=== PATIENT | female | born 1955 | race Caucasian/White ===

== ENCOUNTER 2019-10-02 07:47 | Inpatient (IN) ==
[2019-10-02] MEDS ORDERED: Dexamethasone 4 MG/ML VIAL ONE (08:08)
[2019-10-02] MEDS ORDERED: Lidocaine HCL 4 ML Topical Solution (Laryng-O-Jet Kit Sterile Pak) TP ONE (08:08)
[2019-10-02] MEDS ORDERED: Ondansetron 4 MG/2 ML VIAL ONE (08:08)
[2019-10-02] MEDS ORDERED: *HR* FentaNYL (PF) 100 MCG/2 ML VIAL ONE (08:08)
[2019-10-02] MEDS ORDERED: Lidocaine -MPF 2% 2 ML VIAL ONE (08:08)
[2019-10-02] MEDS ORDERED: *HR* Propofol 200 MG/20 ML VIAL IVP ONE (08:09)
[2019-10-02] MEDS ORDERED: Lidocaine -MPF 4% 5 ML AMPUL ONE (08:10)
[2019-10-02] MEDS ORDERED: *HR* Midazolam HCl 2 MG/2 ML VIAL ONE (08:12)
[2019-10-02] MEDS ORDERED: CeFAZolin Syr 2,000MG/20 ML 2,000 MG/20 ML SYRINGE IVPB ONE (08:24)
[2019-10-02] MEDS ORDERED: Ringers Solution, Lactated 1,000 ML IVC SCH ×2 (08:30→08:45)
[2019-10-02] MEDS ORDERED: *HR* HYDROmorphone PF 0.5 MG/0.5 ML SYRINGE IVP PRN (08:33)
[2019-10-02] MEDS ORDERED: *HR* OxyCODONE/APAP 5/325 TABLET PO PRN (08:33)
[2019-10-02] MEDS ORDERED: Ketorolac 15 MG/ML VIAL IVP ONE (08:33)
[2019-10-02] MEDS ORDERED: Ondansetron 4 MG/2 ML VIAL IVP ONE (08:33)
[2019-10-02] MEDS ORDERED: Lidocaine Jelly 6ml 1 APPL/6 ML JEL.PF.APP ONE (09:16)
[2019-10-02] MEDS ORDERED: Acetaminophen IV 0 MG/0 ML INFUS..BTL ONE (10:31)
[2019-10-02] MEDS ORDERED: *HR* HYDROMORPHONE 2 MG/ML VIAL ONE (10:38)
[2019-10-02] MEDS ORDERED: Naloxone 0.4 MG/ML INJ IVP PRN (12:39)
[2019-10-02] MEDS: Ketorolac 15 MG/ML VIAL IVP SCH ×3 (13:07→23:46)
[2019-10-02] MEDS: *HR* Heparin 5,000 UNIT/ML VIAL SQ SCH ×2 (13:07→20:38)
[2019-10-02] MEDS: 0.9 % Sodium Chloride 1,000 ML IVC SCH (13:08)
[2019-10-02] MEDS: Ipratropium/Albuterol Neb 3 ML IH SCH ×4 (16:19→23:24)
[2019-10-02] MEDS: Gabapentin 300 MG CAPSULE PO SCH ×2 (16:31→20:09)
[2019-10-02] MEDS ORDERED: Ondansetron 4 MG/2 ML VIAL IVP PRN (18:14)
[2019-10-02] MEDS: Sennosides/Docusate Sodium TABLET PO SCH (20:09)
[2019-10-02] MEDS: Famotidine 20 MG TABLET PO SCH (20:09)
[2019-10-02] MEDS: *HR* HYDROcodone/Acet 5/325 mg TABLET PO PRN (21:02)
[2019-10-03] MEDS: 0.9 % Sodium Chloride 1,000 ML IVC SCH (01:24)
[2019-10-03] MEDS: Ipratropium/Albuterol Neb 3 ML IH SCH ×6 (03:50→23:49)
[2019-10-03] MEDS: Ketorolac 15 MG/ML VIAL IVP SCH ×4 (05:38→23:00)
[2019-10-03] MEDS: *HR* Heparin 5,000 UNIT/ML VIAL SQ SCH ×3 (05:38→23:00)
[2019-10-03 06:23] LABS: Hematocrit 34.7 % (35.3-44.9); Hemoglobin 10.9 g/dL (11.5-15.4); Mean Corpuscular HGB Conc 31.4 g/dL (31.6-35.5); Mean Corpuscular Volume 86.1 fL (83.0-100.0); Mean Platelet Volume 9.7 fL (9.4-12.4); Platelet Count 278 K/mcL (140-400); Red Blood Count 4.03 M/mcL (3.82-4.97); Red Cell Distribution Width 13.6 % (11.5-14.5)
[2019-10-03 06:25] LABS: White Blood Count 14.3 K/mcL (4.3-11.1)
[2019-10-03 06:36] LABS: % Iron Saturation 4 % (15-50); BUN/Creatinine Ratio 26 (6-26); Blood Urea Nitrogen 22 mg/dL (8-23); Calcium 8.4 mg/dL (8.6-10.3); Carbon Dioxide 23 mEq/L (23-29); Chloride 105 mEq/L (98-107); Glucose 181 mg/dL (70-105); Iron 21 mcg/dL (50-170); Magnesium 1.8 mg/dL (1.6-2.6); Osmolality,Calculated 292 (280-300); Potassium 3.9 mEq/L (3.5-5.1); Sodium 137 mEq/L (136-145); Transferrin 344 mg/dL (203-362); eGFR For African Americans > 60 (> 60); eGFR For Non-African Americans > 60 (> 60)
[2019-10-03] MEDS: Budesonide/Formoterol 160/4.5 1 PUFF INH IH SCH ×2 (07:56→19:58)
[2019-10-03] MEDS: Sennosides/Docusate Sodium TABLET PO SCH ×2 (08:17→20:04)
[2019-10-03] MEDS: Losartan/HCTZ 50-12.5 TABLET PO SCH (08:17)
[2019-10-03] MEDS: Aspirin Enteric Coated 81 MG Tablet PO SCH (08:17)
[2019-10-03] MEDS: (Bisoprolol Fumarate [Zebeta] 10 MG) PO SCH (08:18)
[2019-10-03] MEDS: Famotidine 20 MG TABLET PO SCH ×2 (08:18→20:04)
[2019-10-03] MEDS: Gabapentin 300 MG CAPSULE PO SCH ×3 (08:18→20:04)
[2019-10-03] MEDS: (Roflumilast [Daliresp] 500 MCG) PO SCH (08:19)
[2019-10-03] MEDS: (Ezetimibe [Zetia] 10 MG) PO SCH (08:19)
[2019-10-03] MEDS: *HR* HYDROcodone/Acet 5/325 mg TABLET PO PRN ×2 (08:23→20:12)
[2019-10-03] MEDS ORDERED: Iron Sucrose Complex 400 MG in 0.9 % Sodium Chloride 250 ML IVPB ONE (09:34)
[2019-10-03] MEDS ORDERED: *HR* HYDROmorphone (PF) 1 MG/ML SYRINGE IVP ONE (09:45)
[2019-10-04] MEDS: Ipratropium/Albuterol Neb 3 ML IH SCH ×6 (03:15→23:23)
[2019-10-04] MEDS: Ketorolac 15 MG/ML VIAL IVP SCH ×4 (05:09→23:38)
[2019-10-04] MEDS: *HR* Heparin 5,000 UNIT/ML VIAL SQ SCH ×3 (05:09→22:41)
[2019-10-04] MEDS: Losartan/HCTZ 50-12.5 TABLET PO SCH (07:52)
[2019-10-04] MEDS: Famotidine 20 MG TABLET PO SCH ×2 (07:52→20:11)
[2019-10-04] MEDS: Sennosides/Docusate Sodium TABLET PO SCH ×2 (07:52→20:10)
[2019-10-04] MEDS: Gabapentin 300 MG CAPSULE PO SCH ×3 (07:52→20:10)
[2019-10-04] MEDS: (Roflumilast [Daliresp] 500 MCG) PO SCH (07:53)
[2019-10-04] MEDS: Aspirin Enteric Coated 81 MG Tablet PO SCH (07:53)
[2019-10-04] MEDS: (Bisoprolol Fumarate [Zebeta] 10 MG) PO SCH (07:53)
[2019-10-04] MEDS: (Ezetimibe [Zetia] 10 MG) PO SCH (07:54)
[2019-10-04] MEDS: Budesonide/Formoterol 160/4.5 1 PUFF INH IH SCH ×2 (10:31→19:42)
[2019-10-05] MEDS: Ipratropium/Albuterol Neb 3 ML IH SCH ×3 (03:29→11:05)
[2019-10-05] MEDS: Ketorolac 15 MG/ML VIAL IVP SCH (05:50)
[2019-10-05] MEDS: *HR* Heparin 5,000 UNIT/ML VIAL SQ SCH (05:50)
[2019-10-05 06:20] VITALS: BP 120/82
[2019-10-05] MEDS: Budesonide/Formoterol 160/4.5 1 PUFF INH IH SCH (07:39)
[2019-10-05] MEDS: (Roflumilast [Daliresp] 500 MCG) PO SCH (08:08)
[2019-10-05] MEDS: (Ezetimibe [Zetia] 10 MG) PO SCH (08:08)
[2019-10-05] MEDS: (Bisoprolol Fumarate [Zebeta] 10 MG) PO SCH (08:08)
[2019-10-05] MEDS: Aspirin Enteric Coated 81 MG Tablet PO SCH (08:11)
[2019-10-05] MEDS: Sennosides/Docusate Sodium TABLET PO SCH (08:11)
[2019-10-05] MEDS: Gabapentin 300 MG CAPSULE PO SCH (08:11)
[2019-10-05] MEDS: Famotidine 20 MG TABLET PO SCH (08:11)
[2019-10-05] MEDS: Losartan/HCTZ 50-12.5 TABLET PO SCH (08:11)
== END 2019-10-05 10:48 | disposition home or self-care (01) | DRG 165 ==
LOC: SAMDAY 07:47 → 2NNU 12:36
PROVIDERS: ADMIT Thoracic Surgery (Cardiothoracic Vascular Surgery); ATTEND Thoracic Surgery (Cardiothoracic Vascular Surgery)

== ENCOUNTER 2020-10-28 16:40 | Observation (INO) ==
[2020-10-28] MEDS ORDERED: Melatonin 3 MG TABLET PO PRN (20:02)
[2020-10-28] MEDS ORDERED: Acetaminophen 325 MG TABLET PO PRN (20:02)
[2020-10-28] MEDS ORDERED: Ondansetron 4 MG/2 ML VIAL IVP PRN (20:02)
[2020-10-28] MEDS ORDERED: Naloxone 0.4 MG/ML INJ IVP PRN (20:02)
[2020-10-28] MEDS ORDERED: traZODone 50 MG TABLET PO PRN (20:51)
[2020-10-28] MEDS ORDERED: Dextrose Gel 15 GM/37.5 ML TUBE PO PRN ×2 (20:52)
[2020-10-28] MEDS ORDERED: D5% in Water 1,000 ML IVC PRN (20:52)
[2020-10-28] MEDS ORDERED: *HR* Dextrose 50 % in Water (Vial) 50 ML VIAL IVP PRN (20:52)
[2020-10-28] MEDS ORDERED: Albuterol 2.5 MG/3 ML NEBULIZER IH PRN (21:06)
[2020-10-28] MEDS ORDERED: Azithromycin 500 MG in 0.9 % Sodium Chloride 250 ML IVPB SCH (22:00)
[2020-10-28] MEDS: Ipratropium/Albuterol Neb 3 ML IH SCH (22:21)
[2020-10-29] MEDS: Insulin LISPRO 300 UNITS/3 ML VIAL SUBQ SCH ×2 (00:35→05:17)
[2020-10-29] MEDS ORDERED: Gabapentin 100 MG CAPSULE PO ONE (02:43)
[2020-10-29] MEDS: Ipratropium/Albuterol Neb 3 ML IH SCH ×2 (03:53→09:21)
[2020-10-29] MEDS ORDERED: *HR* Heparin 5,000 UNIT/ML VIAL SQ SCH (06:00)
[2020-10-29 06:19] LABS: Basophils % 0.1 %; Hematocrit 36.3 % (35.3-44.9); Immature Granulocytes % 0.7 % (0-4); Lymphocytes # 0.7 K/mcL (0.6-4.6); Lymphocytes % 5.1 %; Mean Corpuscular HGB Conc 30.3 g/dL (31.6-35.5); Mean Corpuscular Hemoglobin 23.5 pg (28.0-33.3); Mean Corpuscular Volume 77.4 fL (83.0-100.0); Mean Platelet Volume 9.6 fL (9.4-12.4); Monocytes # 0.3 K/mcL (0.0-1.3); Monocytes % 2.2 %; Neutrophils # 13.1 K/mcL (1.6-8.9); Platelet Count 331 K/mcL (140-400); Red Blood Count 4.69 M/mcL (3.82-4.97); Red Cell Distribution Width 17.2 % (11.5-14.5); Segmented Neutrophils % 91.9 %; White Blood Count 14.2 K/mcL (4.3-11.1)
[2020-10-29 06:42] LABS: Alanine Aminotransferase 11 Units/L (7-52); Albumin 4.3 g/dL (3.5-5.7); Albumin/Globulin Ratio 1.5 (1.1-2.2); Alkaline Phosphatase 52 Units/L (34-104); Aspartate Amino Transferase 12 Units/L (13-39); BUN/Creatinine Ratio 23 (6-26); Bilirubin,Total 0.2 mg/dL (0.3-1.0); Blood Urea Nitrogen 19 mg/dL (8-23); Calcium 9.1 mg/dL (8.6-10.3); Carbon Dioxide 18 mEq/L (23-29); Chloride 106 mEq/L (98-107); Globulin 2.9 g/dL (2.4-3.5); Glucose 201 mg/dL (70-105); Magnesium 1.9 mg/dL (1.6-2.6); Osmolality,Calculated 294 (280-300); Phosphorous 1.8 mg/dL (2.7-4.5); Potassium 4.1 mEq/L (3.5-5.1); Sodium 138 mEq/L (136-145); Total Protein 7.2 g/dL (6.4-8.9); eGFR For African Americans > 60 (> 60); eGFR For Non-African Americans > 60 (> 60)
[2020-10-29 06:43] LABS: Troponin I < 0.03 ng/mL (< 0.04)
[2020-10-29 07:26] LABS: Estimated Average Glucose 180 mg/dl; Hemoglobin A1C 7.9 %
[2020-10-29] MEDS ORDERED: Aspirin Enteric Coated 81 MG Tablet PO SCH (09:00)
[2020-10-29] MEDS ORDERED: predniSONE 20 MG TABLET PO SCH (09:00)
[2020-10-29] MEDS ORDERED: Perflutren Lipid Microsphere 1.3 ML in 0.9 % Sodium Chloride 8.7 ML IVP PRN (10:23)
[2020-10-29 11:20] VITALS: BP 122/71
[2020-10-29] MEDS ORDERED: Insulin LISPRO 300 UNITS/3 ML VIAL SUBQ SCH ×2 (16:30→21:00)
== END 2020-10-29 15:51 | disposition home or self-care (01) ==
LOC: CDU → SUATTDRO 18:46
PROVIDERS: ADMIT Internal Medicine; ATTEND Family Medicine